=== PATIENT | male | born 1945 | race Caucasian/White ===

== ENCOUNTER 2021-01-29 09:02 | Emergency (ER) | payer MEDICARE, SELFPAY ==
--- NOTE | 2021-01-29 09:08 | ED.SKABFB ---
HPI - Skin/Abscess/Foreign Bdy General Chief complaint: Wound/Laceration Stated complaint: Boil on Back Time Seen by Provider: 01/29/21 09:15 Source: patient and RN notes reviewed Mode of arrival: ambulatory Limitations: no limitations History of Present Illness HPI narrative: 75-year-old male presents to the [facility] with a boil, abscess to the right scapular area. Patient denies pain. There is redness and inflammation. Fluctuant center. Patient states noticed it last night. No fevers, chest pain, abdominal pain. Related Data Home Medications Medication Instructions Recorded Confirmed amlodipine 5 mg PO DAILY 01/29/21 01/29/21 atorvastatin 20 mg PO DAILY 01/29/21 01/29/21 doxazosin 8 mg PO DAILY 01/29/21 01/29/21 lisinopril-hydrochlorothiazide 1 tablet PO DAILY 01/29/21 01/29/21 Allergies Allergy/AdvReac Type Severity Reaction Status Date / Time cephalexin Allergy Unknown Hives Unverified 01/29/21 09:06 Review of Systems Review of Systems: All systems reviewed & are unremarkable except as noted in HPI and below Constitutional: Constitutional: Reports no additional constitutional complaints, Denies chills and Denies fever(s) Eyes: Eyes: Reports no additional eye complaints ENT: Reports system reviewed and no additional complaints, except as documented Cardiovascular: Cardiovascular: Reports no additional cardiovascular complaints Respiratory: Respiratory: Reports no additional respiratory complaints Musculoskeletal: Musculoskeletal: Reports no additional musculoskeletal complaints Integumentary/Breasts: Skin/Breast: Reports as per HPI and Reports erythema (2 cm areax 2 cm with fluctuant center) Neurologic: Reports system reviewed and no additional complaints, except as documented Psychiatric: Psychiatric: Reports no additional psychiatric complaints Allergic/Immunologic: Allergic/Immunologic: Reports no additional allergic/immunologic complaints [facility] Past Medical History Medical History (Updated 01/29/21 @ 09:31 by Ofelia Gerardo) High cholesterol Hypertension Surgical History Surgical History (Updated 01/29/21 @ 09:22 by Ofelia Gerardo) History of prostate surgery Hx of inguinal hernia surgery Social History Social History (Updated 01/29/21 @ 09:22 by Ofelia Gerardo) Living arrangements: with family Gender identity (if verbalized by the patient): Male Comments At the time of my signature, I reviewed and agree with the nursing past medical, surgical, social, and family history. There is no relevant family history pertinent to the patient complaint. Exam Const: General: no acute distress Orientation/consciousness: patient oriented x3 HENMT: Head: normal to inspection Eyes: Pupils: Equal, round and reactive pupils present Neck: Neck: normal visual inspection and no lymphadenopathy Chest: Chest palpation & inspection: normal inspection of the chest Resp: Effort & Inspection: normal respiratory effort Auscultation: clear to auscultation bilaterally Cardio: Rate: regular rate Rhythm: regular rhythm Back/Spine/Pelvis: Back: no CVA tenderness Skin: Wounds: wounds noted Other: Right scapular area, 2 cm redness with small fluctuant center. Neuro: General: patient oriented x3, moves all extremities, no meningeal signs and no focal motor deficits Speech: normal speech Gait exam (Neuro): Normal gait present Extrem: General: normal to inspection Psych: Appearance: grossly normal and well kempt Mental Status: mental status grossly normal Affect: normal affect Attitude: cooperative Thought content: Yes Normal thought content present Course Course Emergency Course: Discharge instructions reviewed with patient, as well as provided in writing per nursing staff. The instructions also include specific and strict return/GO TO THE ER as well as f/u information. All questions have been answered, and the patient deny any further questions with discharge and discharge saadia
[2021-01-29 09:15] VITALS: BP 159/73; PULSE 112; RESP 18; TEMP 35.9; O2SAT 96
== END 2021-01-29 09:40 | disposition home or self-care (01) ==
PROVIDERS: Emergency Provider Nurse Practitioner; PCP Family Medicine
DX: L02.413 Cutaneous abscess of right upper limb (principal); I10 Essential (primary) hypertension
CPT/HCPCS: 10060; 87070; 87075; 87205; 99213; G0463

== ENCOUNTER 2022-05-03 10:03 | Emergency (ER) | payer MEDICARE, SELFPAY ==
--- NOTE | 2022-05-03 10:05 | ED.URI ---
HPI - URI/Sore Throat General Chief Complaint: Upper Respiratory Infection Stated Complaint: cold/flu like sx Time Seen by Provider: 05/03/22 10:04 Source: patient Mode of arrival: ambulatory Limitations: no limitations History of Present Illness HPI Narrative: Mr. Rodriguez is a 77-year-old male patient presenting to the clinic today with complaints of flu-like symptoms. He reports he has got a cough, chills, body aches, and sinus congestion since yesterday. He denies any shortness of breath, chest pain, or headache MD elicited complaint: cough, nasal congestion and other ( chills, body ache) Related Data Home Medications Medication Instructions Recorded Confirmed amlodipine 5 mg tablet 5 mg PO DAILY 01/29/21 05/03/22 atorvastatin 20 mg tablet 20 mg PO DAILY 01/29/21 05/03/22 doxazosin 8 mg tablet 8 mg PO DAILY 01/29/21 05/03/22 lisinopril 20 1 tablet PO DAILY 01/29/21 05/03/22 mg-hydrochlorothiazide 25 mg tablet Allergies Allergy/AdvReac Type Severity Reaction Status Date / Time cephalexin Allergy Unknown Hives Verified 05/03/22 10:06 Review of Systems Review of Systems: Pertinent positives per HPI. Patient denies any fever, rash, headache, visual changes, dizziness, shortness of breath, chest pain, palpitations, nausea, vomiting, diarrhea, constipation, abdominal pain, or any urinary issues. [facility] Past Medical History Medical History (Updated 05/03/22 @ 10:29 by Julian Hogan APRN) High cholesterol Hypertension Surgical History Surgical History (Updated 01/29/21 @ 09:22 by Ofelia Gerardo APRN) History of prostate surgery Hx of inguinal hernia surgery Social History Social History (Updated 01/29/21 @ 09:22 by Ofelia Gerardo APRN) Gender identity (if verbalized by the patient): Male Comments At the time of my signature, I reviewed and agree with the nursing past medical, surgical, social, and family history. There is no relevant family history pertinent to the patient complaint. Exam Narrative: General: Well-developed, well nourished, in no apparent distress Head: Normocephalic, atraumatic Eyes: Pupils equally round and reactive to light bilaterally, EOM intact, sclera and conjunctive clear, no discharge, lids normal Ears: TMs intact and clear, ear canals clear, no drainage, grossly hearing normal. Nose: Nares patent, clear nasal discharge, no inflammation, no sinus tenderness. Mouth: Oral pharynx without lesions or masses, good dentition, MMM. postnasal drip Neck: Supple, trachea midline, no enlargement of anterior or posterior cervical nodes, no thyroid masses or goiter palpable. Cardio: Regular rate and rhythm, s1 and s2 normal, no murmur appreciated. Resp: Clear to auscultation bilaterally, no rhonchi, rales, wheezing or rubs Course Course Emergency Course: Portions of this record may have been created with voice recognition software. Level of Care: Express Care Visit Vital Signs Vital signs: Vital Signs Temperature 36.5 C 05/03/22 10:11 Pulse Rate 101 H 05/03/22 10:11 Respiratory Rate 16 05/03/22 10:11 Blood Pressure 136/66 05/03/22 10:11 Pulse Oximetry 96 05/03/22 10:11 Oxygen Delivery Room Air 05/03/22 10:11 Temperature 36.5 C 05/03/22 10:11 Pulse Rate 101 H 05/03/22 10:11 Respiratory Rate 16 05/03/22 10:11 Blood Pressure 136/66 05/03/22 10:11 Pulse Oximetry 96 05/03/22 10:11 Oxygen Delivery Room Air 05/03/22 10:11 Vital signs reviewed MDM - URI/Sore Throat MDM Narrative Medical decision making narrative: At the time of visit patient is resting comfortably on the exam table. Influenza and COVID testing was completed in the clinic today. Influenza was negative however COVID testing is positive in the clinic. Prescription for molnupiviria was sent to the pharmacy. Supportive measures were discussed with the patient he voiced understanding discharge instructions and agrees to treatment plan. Differential Diagnos
[2022-05-03 10:11] VITALS: BP 136/66; PULSE 101; RESP 16; TEMP 36.5; O2SAT 96
== END 2022-05-03 10:32 | disposition home or self-care (01) ==
PROVIDERS: Emergency Provider Nurse Practitioner Family; PCP Family Medicine
DX: U07.1 COVID-19 (principal); I10 Essential (primary) hypertension
CPT/HCPCS: 87426; 87804; 99213; C9803; G0463

== ENCOUNTER 2024-04-24 04:09 | Inpatient (IN) | payer MEDICARE, SELFPAY ==
[2024-04-24] VITALS (8 sets, daily range): BP systolic 129–145; BP diastolic 62–80; PULSE 76–99; RESP 14–20; TEMP 36.8–37.4; O2SAT 90–98; BMI 28.3
--- NOTE | ~2024-04-24 | CT_ITS ---
EXAMINATION: CT abdomen pelvis w con DATE: 04/24/2024 06:36 INDICATION: Epigastric abdominal pain. Elevated serum lipase. TECHNIQUE: Computed tomography (CT) of the abdomen and pelvis was performed with 100 CC Omnipaque 350 intravenous contrast. Automated exposure control and iterative reconstruction technique were employe d. Exam dose: 868.96 mGy-cm total exam DLP. COMPARISON: None. FINDINGS: Scattered bilateral calcified pleural plaques consistent with prior asbestos exposure. Minimal atelectasis at the lung bases. Heart size is within normal range. There is calcification of the left main and particularly left ante rior descending coronary arteries. No pericardial or pleural effusion. Small sliding hiatal hernia. Diffuse hepatic steatosis. No hepatic space-occupying mass lesion. The gallbladder is present. No gal lbladder wall thickening is evident. There is diffuse peripancreatic mild fat stranding consistent with uncomplicated acute interstitial p ancreatitis. No pancreatic mass lesion, ductal dilatation or calcification. No bile duct dilatation. Normal splenic size. Normal morphology of the adrenal glands. No renal mass lesion or urinary tract calculus or hydroureteronephrosis is detected There is atherosclerotic calcification but normal caliber of the abdominal aorta and iliac and femora l arteries. No intraperitoneal or retroperitoneal or pelvic mass lesion or adenopathy or ascites is detected. Normal appendix. There are numerous diverticula of the sigmoid and descending colon; no CT evidence of diverticulitis. No bowel obstruction, bowel wall thickening, pneumatosis or intraperitoneal free air is detected. Status post prostatectomy. The urinary bladder is unremarkable. Bilateral small fat-containing inguinal hernias. Diffuse idiopathic skeletal hyperostosis of the included lower thoracic spine. There is prominent degenerative change at the apophyseal joints at the lumbar and lumbosacral area wi th associated minimal grade 1 anterolisthesis at L4-5. No suspicious osteolytic or osteoblastic lesions. IMPRESSION: Acute interstitial pancreatitis Small sliding hiatal hernia Normal appendix Diverticulosis of left colon; no CT evidence of diverticulitis Diffuse hepatic steatosis Status post prostatectomy Scattered bilateral calcified pleural plaques consistent with prior asbestos exposure Reviewed, dictated and finalized at [facility]. Reviewed, dictated and finalized at [facility]. ON CUTTER IMPRESSION: Acute interstitial pancreatitis Small sliding hiatal hernia Normal appendix Diverticulosis of left colon; no CT evidence of diverticulitis Diffuse hepatic steatosis Status post prostatectomy Scattered bilateral calcified pleural plaques consistent with prior asbestos ex posure
--- NOTE | ~2024-04-24 | XR_ITS ---
XR chest 1V portable DATE: 04/24/2024 04:44 INDICATION: Chest pain TECHNIQUE: Portable upright AP chest 04/24/2024 at 0444 hours COMPARISON: None FINDINGS: Heart size is normal. Aortic calcification and mild tortuosity. No hilar or mediastinal enl argement. No pulmonary consolidation, pleural effusion, pulmonary vascular congestion or pneumothorax. Degenerative spurring and mild dextroscoliosis of the thoracic spine. IMPRESSION: No active cardiopulmonary disease Reviewed, dictated and finalized at location [facility]. R D INTERNSHIP
--- NOTE | ~2024-04-24 | US_ITS ---
US right upper quadrant DATE: 04/24/2024 08:20 INDICATION: Elevated liver enzymes. Pancreatitis. TECHNIQUE: Real-time imaging of the liver, pancreas, gallbladder COMPARISON: 04/24/2024 CT abdomen pelvis FINDINGS: Increased echogenicity of the hepatic parenchyma suggesting hepatic steatosis. Normal hepat opedal portal venous flow direction. No gallstones or gallbladder wall thickening are detected. Negative sonographic Cantu sign; however, the patient is on pain medication, which limits the sensitivity of this examination. No pancreatic mass lesion is evident. No pancreatic duct dilatation. The common bile duct measures 7.4 mm, which is borderline in this 79-year-old patient. IMPRESSION: Hepatic steatosis No gallstones are demonstrated Borderline common bile duct diameter of 7.4 mm Reviewed, dictated and finalized at [facility]. Reviewed, dictated and finalized at [facility]. 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
--- NOTE | ~2024-04-24 | MR_ITS ---
EXAMINATION: MR MRCP wo con/w 3D wo ind pp DATE: 04/24/2024 15:54 INDICATION: Bile duct dilatation. Acute pancreatitis. TECHNIQUE: Magnetic resonance imaging (MRI) of the abdomen was performed without intravenous contrast . Sequences included coronal T2-weighted FS FSE, coronal T2-weighted FSE, axial T1-weighted LAVA, cor onal FS FIESTA, axial dual-echo T1-weighted SPGR, coronal lava-FLEX, sagittal T2-weighted FSE, axial T2-weighted FSE, and axial DWI. Thick-slab T2-weighted FSE images were obtained for magnetic resonanc e cholangiopancreatography (MRCP). Maximum intensity projection 3-D reconstructions of the volumetric data were created by the technologist. COMPARISON: CT abdomen and pelvis 04/24/2024 FINDINGS: ABDOMEN MRI: There is diffuse hepatic steatosis. The gallbladder is normal in size. The spleen is nor mal. There is fat stranding around the pancreas, consistent with acute interstitial pancreatitis. The adrenal glands and left kidney are normal. There is an 11 mm cyst in right kidney. There are no dila josh loops of bowel. ABDOMEN MRCP: The common duct measures 8 mm in diameter. No choledocholithiasis. IMPRESSION: 1. Acute interstitial pancreatitis. 2. No choledocholithiasis. 3. Diffuse hepatic steatosis. Reviewed, dictated and finalized at location [facility]. 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
--- NOTE | 2024-04-24 04:17 | ECG_ITS ---
Test Date: 2024-04-24 04:19:37 Measurements Intervals [place] Rate: 82 P: -47 MD: 167 QRS: 42 QRSD: 98 T: 59 QT: 374 QTc: 438 Interpretive Statements SINUS RHYTHM BORDERLINE AV CONDUCTION DELAY ANTERIOR INFARCT, AGE INDETERMINATE BORDERLINE ST-T WAVE ABNORMALITY- INF/LAT LEADS BASELINE ARTIFACT- I, II, III, AVR, AVL, AVF, V1-V6 ABNORMAL ECG No previous ECG available for comparison Electronically Signed On 04-24-2024 06:34:39 [employer]ATE INSPECTOR by Brody Montgomery D.O.
[2024-04-24] MEDS: ASPIRIN 81 MG CHEWABLE TABLET 324 MG PO (04:35)
[2024-04-24 04:42] LABS: Basophils Percent Auto 0.4 % (0.2-1.2); Eosinophils Absolute Auto 0.2 K/mm3 (0-0.3); Eosinophils Percent Auto 2.4 % (0-4.4); Hematocrit 39.7 % (42.0-52.0); Hemoglobin 13.9 g/dL (14.0-18.0); Immature Granulocyte Absolute 0.02 K/mm3 (0.00-0.031); Immature Granulocyte Percent A 0.2 % (0-0.5); Lymphocytes Absolute Auto 1.85 K/mm3 (0.9-3.2); Lymphocytes Percent Auto 22.5 % (18.3-44.2); Mean Corpuscular Hemoglobin 31.2 pg (26-34); Mean Platelet Volume 10.6 fl (7.4-10.4); Monocytes Absolute Auto 0.8 K/mm3 (0.1-0.6); Monocytes Percent Auto 9.5 % (2.6-8.5); Neutrophils Absolute Auto 5.4 K/mm3 (1.3-6.7); Platelet Count Result 252 k/mm3 (150-375); Red Blood Count 4.46 M/mm3 (4.6-6.20); Red Cell Distribution Width 12.4 % (11.5-14.5); White Blood Count 8.2 K/mm3 (4.5-10.0)
--- NOTE | 2024-04-24 04:46 | ED_ITS ---
HPI - General Adult General Chief complaint: Chest Pain <García Christiansen MD - Last Filed: 04/24/24 06:15> Stated complaint: chest pain since yesterday <García Christiansen MD - Last Filed: 04/24/24 06:15> Time Seen by Provider: 04/24/24 04:28 <García Christiansen MD - Last Filed: 04/24/24 06:15> History of Present Illness HPI narrative: Patient is a 79-year-old gentleman presents emergency department with chief complaint of chest pain. Patient reports about 1 hour prior to arrival woke up with having home midportion of his chest. Patient reports no radiation does report that it got a little sweaty/ diaphoretic with the episode happened patient reports the pain has improved and is significantly improved and was very mild at this. <García Christiansen MD - Last Filed: 04/24/24 06:15> Related Data Home medications: Home Medications Medication Instructions Recorded Confirmed amlodipine 5 mg tablet 5 mg PO DAILY 01/29/21 05/03/22 atorvastatin 20 mg tablet 20 mg PO DAILY 01/29/21 05/03/22 doxazosin 8 mg tablet 8 mg PO DAILY 01/29/21 05/03/22 lisinopril 20 1 tablet PO DAILY 01/29/21 05/03/22 mg-hydrochlorothiazide 25 mg tablet <García Christiansen MD - Last Filed: 04/24/24 06:15> Allergies/adverse reactions: Allergies Allergy/AdvReac Type Severity Reaction Status Date / Time cephalexin Allergy Unknown Hives Verified 05/03/22 10:06 <García Christiansen MD - Last Filed: 04/24/24 06:15> Review of Systems Review of Systems: A 10 system review of systems was completed on the patient and is negative except for what is stated in the HPI. Nursing and ancillary documentation was reviewed. <García Christiansen MD - Last Filed: 04/24/24 06:15> [facility] Past Medical History Medical History: Medical History High cholesterol Hypertension <García Christiansen MD - Last Filed: 04/24/24 06:15> Surgical History Surgical History: Surgical History History of prostate surgery Hx of inguinal hernia surgery <García Christiansen MD - Last Filed: 04/24/24 06:15> Social History Social History: Social History Living arrangements: with family Gender identity (if verbalized by the patient): Male <García Christiansen MD - Last Filed: 04/24/24 06:15> Exam Narrative: GENERAL: Well-appearing, well-nourished, and in no acute distress. HEAD: Normocephalic, atraumatic. EYES: PERRLA and EOMI. ENT: Nares clear, no rhinorrhea or epistaxis. Mucous membranes moist. NECK: Supple. CHEST: Clear to auscultation. No respiratory distress. HEART: Regular rate and rhythm. No murmur heard. Normal peripheral pulses. ABDOMEN: Soft, nontender, nondistended, normal active bowel sounds. EXTREMITIES: Normal range of motion. No edema. SKIN: Warm, dry, no rash. NEURO: No focal deficits. Alert and oriented x3. PSYCH: Normal mood and affect. <García Christiansen MD - Last Filed: 04/24/24 06:15> Course Course Emergency Course: Zych 1040: patient signed out to me pending CT abdomen pelvis and right upper quadrant ultrasound. Lipase at 19,000. no evidence of gallstones on the CT or ultrasound. Patient admits to drinking with his sons over and drink far more than he typically does. Alcohol is the likely etiology. At this time the patient will be admitted to the hospital for further management of his pancreatitis. <Wisam Estrella MD - Last Filed: 04/24/24 11:15> Vital Signs Vital signs: Vital Signs Pulse Rate 98 04/24/24 04:13 Respiratory Rate 20 04/24/24 04:13 Pulse Oximetry 98 04/24/24 04:13 Oxygen Delivery Room Air 04/24/24 04:13 Temperature 98.2 F 04/24/24 04:51 Pulse Rate 95 04/24/24 09:47 Respiratory Rate 14 04/24/24 09:47 Blood Pressure 137/75 04/24/24 09:47 Pulse Oximetry 94 04/24/24 09:47 Oxygen Delivery Room Air 04/24/24 04:13 <García Christiansen MD - Last Filed: 04/24/24 06:15> Vital Signs Pulse Rate 98 04/24/24 04:13 Respiratory Rate 20 04/24/24 04:13 Pulse Oximetry 98 04/24/24 04:13 Oxygen Delivery Room Air 04/24/24 04:13 Temperature 98.2 F 04/24/24 04:51 Pulse Rate 95 04/24/24 09:47 Respiratory Rate 14 04/24/24 09:47 Blood Pressure 137/75 04/24/24 09:47 Pulse Oximetry 94 04/24/24 09:47 Oxygen Delivery Room Air 04/24/24 04:13 <Wisam Estrella MD - Last Filed: 04/24/24 11:15> Medical Decision Making MDM Narrative Medical decision making narrative: Differential diagnosis includes ACS, atypical chest pain, pancreatitis, EKG showed no acute ischemic changes laboratory studies were obtained on the patient showed a CBC with white count of 8.2 electrolytes were within normal limits bilirubin is 1.8 AST and ALT were elevated at 185 and [id number] scan of the abdomen pelvis was ordered patient is feeling much better at this time <García Christiansen MD - Last Filed: 04/24/24 06:15> Vital Signs Vital Signs: Vital Signs Pulse Rate 98 04/24/24 04:13 Respiratory Rate 20 04/24/24 04:13 Pulse Oximetry 98 04/24/24 04:13 Oxygen Delivery Room Air 04/24/24 04:13 Temperature 98.2 F 04/24/24 04:51 Pulse Rate 95 04/24/24 09:47 Respiratory Rate 14 04/24/24 09:47 Blood Pressure 137/75 04/24/24 09:47 Pulse Oximetry 94 04/24/24 09:47 Oxygen Delivery Room Air 04/24/24 04:13 <García Christiansen MD - Last Filed: 04/24/24 06:15> Vital Signs Pulse Rate 98 04/24/24 04:13 Respiratory Rate 20 04/24/24 04:13 Pulse Oximetry 98 04/24/24 04:13 Oxygen Delivery Room Air 04/24/24 04:13 Temperature 98.2 F 04/24/24 04:51 Pulse Rate 95 04/24/24 09:47 Respiratory Rate 14 04/24/24 09:47 Blood Pressure 137/75 04/24/24 09:47 Pulse Oximetry 94 04/24/24 09:47 Oxygen Delivery Room Air 04/24/24 04:13 <Wisam Estrella MD - Last Filed: 04/24/24 11:15> Lab Data Result diagrams: 04/24/24 04:35 04/24/24 04:35 <García Christiansen MD - Last Filed: 04/24/24 06:15> Labs: Lab Results 04/24/24 04/24/24 04/24/24 Range/Units 04:35 04:36 09:54 WBC 8.2 (4.5-10.0) K/mm3 RBC 4.46 L (4.6-6.20) M/mm3 Hgb 13.9 L (14.0-18.0) g/dL Hct 39.7 L (42.0-52.0) % MCV 89.0 (80-100) fl MCH 31.2 (26-34) pg MCHC 35.0 (32-36) g/dl RDW 12.4 (11.5-14.5) % Plt Count 252 (150-375) k/mm3 MPV 10.6 H (7.4-10.4) fl Immature Gran % (Auto) 0.2 (0-0.5) % Neut % (Auto) 65.0 (45.5-73.1) % Lymph % (Auto) 22.5 (18.3-44.2) % [place] % (Auto) 9.5 H (2.6-8.5) % Eos % (Auto) 2.4 (0-4.4) % Baso % (Auto) 0.4 (0.2-1.2) % Lymph # (Auto) 1.85 (0.9-3.2) K/mm3 [place] # (Auto) 0.8 H (0.1-0.6) K/mm3 Eos # (Auto) 0.2 (0-0.3) K/mm3 Baso # (Auto) 0.0 (0.0-0.1) K/mm3 Abs Immat Gran (auto) 0.02 (0.00-0.031) K/mm3 Absolute Neuts (auto) 5.4 (1.3-6.7) K/mm3 Absolute Nucleated RBC 0.000 (0.0-0.012) K/mm3 Nucleated RBC % 0.0 (0.0-0.2) % PT 13.9 (11.1-14.7) Seconds INR 1.0 APTT 27.4 (22.3-36.8) Seconds Sodium 136 L (137-145) mmol/L Potassium 3.4 (3.4-5.0) mmol/L Chloride 104 (98-107) mmol/L Carbon Dioxide 27 (22-30) mmol/L Anion Gap 5 (4-12) mmol/L BUN 16 (9-20) mg/dL Creatinine 1.00 (0.7-1.3) mg/dL Estim Creat Clear Calc 59 ml/min Estimated GFR > 60 (59 - ) Glucose 146 H (65-110) mg/dL Calcium 9.0 (8.4-10.2) mg/dL Total Bilirubin 1.8 H (0.2-1.3) mg/dL AST 185 H (17-59) U/L ALT 115 H (6-50) U/L Alkaline Phosphatase 102 (38-126) U/L Troponin I < 0.012 0.012 (0.000-0.034) ng/mL Total Protein 8.0 (6.3-8.2) g/dL Albumin 4.3 (3.5-5.1) g/dL Lipase 78110 H (23-300) U/L <García Christiansen MD - Last Filed: 04/24/24 06:15> Lab Results 04/24/24 04/24/24 04/24/24 Range/Units 04:35 04:36 09:54 WBC 8.2 (4.5-10.0) K/mm3 RBC 4.46 L (4.6-6.20) M/mm3 Hgb 13.9 L (14.0-18.0) g/dL Hct 39.7 L (42.0-52.0) % MCV 89.0 (80-100) fl MCH 31.2 (26-34) pg MCHC 35.0 (32-36) g/dl RDW 12.4 (11.5-14.5) % Plt Count 252 (150-375) k/mm3 MPV 10.6 H (7.4-10.4) fl Immature Gran % (Auto) 0.2 (0-0.5) % Neut % (Auto) 65.0 (45.5-73.1) % Lymph % (Auto) 22.5 (18.3-44.2) % [place] % (Auto) 9.5 H (2.6-8.5) % Eos % (Auto) 2.4 (0-4.4) % Baso % (Auto) 0.4 (0.2-1.2) % Lymph # (Auto) 1.85 (0.9-3.2) K/mm3 [place] # (Auto) 0.8 H (0.1-0.6) K/mm3 Eos # (Auto) 0.2 (0-0.3) K/mm3 Baso # (Auto) 0.0 (0.0-0.1) K/mm3 Abs Immat Gran (auto) 0.02 (0.00-0.031) K/mm3 Absolute Neuts (auto) 5.4 (1.3-6.7) K/mm3 Absolute Nucleated RBC 0.000 (0.0-0.012) K/mm3 Nucleated RBC % 0.0 (0.0-0.2) % PT 13.9 (11.1-14.7) Seconds INR 1.0 APTT 27.4 (22.3-36.8) Seconds Sodium 136 L (137-145) mmol/L Potassium 3.4 (3.4-5.0) mmol/L Chloride 104 (98-107) mmol/L Carbon Dioxide 27 (22-30) mmol/L Anion Gap 5 (4-12) mmol/L BUN 16 (9-20) mg/dL Creatinine 1.00 (0.7-1.3) mg/dL Estim Creat Clear Calc 59 ml/min Estimated GFR > 60 (59 - ) Glucose 146 H (65-110) mg/dL Calcium 9.0 (8.4-10.2) mg/dL Total Bilirubin 1.8 H (0.2-1.3) mg/dL AST 185 H (17-59) U/L ALT 115 H (6-50) U/L Alkaline Phosphatase 102 (38-126) U/L Troponin I < 0.012 0.012 (0.000-0.034) ng/mL Total Protein 8.0 (6.3-8.2) g/dL Albumin 4.3 (3.5-5.1) g/dL Lipase 71667 H (23-300) U/L <Wisam Estrella MD - Last Filed: 04/24/24 11:15> Critical Care Time Critical Care Time Critical Care Time: Yes <Wisam Estrella MD - Last Filed: 04/24/24 11:15> Total Critical Care Time: 35 <Wisam Estrella MD - Last Filed: 04/24/24 11:15> Discharge Plan Discharge Clinical Impression: Abdominal pain, epigastric, Pancreatitis, acute <García Christiansen MD - Last Filed: 04/24/24 06:15> Patient Disposition: Still a Patient <García Christiansen MD - Last Filed: 04/24/24 06:15> Condition: Stable <García Christiansen MD - Last Filed: 04/24/24 06:15> Prescriptions: No Action atorvastatin 20 mg tablet 20 mg PO DAILY amlodipine 5 mg tablet 5 mg PO DAILY doxazosin 8 mg tablet 8 mg PO DAILY lisinopril-hydrochlorothiazide 20-25 mg tablet 1 tablet PO DAILY Lagevrio (EUA) 200 mg capsule 800 mg PO Q12H 5 Days Qty: 40 0RF <García Christiansen MD - Last Filed: 04/24/24 06:15> Follow-up/Referrals: Tavo,Jameel Cline MD [Primary Care Provider] - <García Christiansen MD - Last Filed: 04/24/24 06:15>
[2024-04-24 04:53] LABS: Prothrombin Time 13.9 Seconds (11.1-14.7)
[2024-04-24 04:54] LABS: Partial Thromboplastin Time 27.4 Seconds (22.3-36.8)
[2024-04-24 05:06] LABS: Troponin I < 0.012 ng/mL (0.000-0.034)
[2024-04-24 05:22] LABS: Alanine Aminotransferase 115 U/L (6-50); Albumin Level 4.3 g/dL (3.5-5.1); Alkaline Phosphatase 102 U/L (38-126); Anion Gap 5 mmol/L (4-12); Aspartate Amino Transferase 185 U/L (17-59); Bilirubin,Total 1.8 mg/dL (0.2-1.3); Blood Urea Nitrogen 16 mg/dL (9-20); Carbon Dioxide 27 mmol/L (22-30); Chloride 104 mmol/L (98-107); Estimated CRCL calculation 59 ml/min; Estimated Glomerular Filt Rate > 60; Glucose 146 mg/dL (65-110); Potassium 3.4 mmol/L (3.4-5.0); Sodium 136 mmol/L (137-145)
[2024-04-24 05:54] LABS: Lipase 19835 U/L (23-300)
[2024-04-24 10:34] LABS: Troponin I 0.012 ng/mL (0.000-0.034)
[2024-04-24] MEDS: SODIUM CHLORIDE 0.9% IV 2,000 ML 999 ML IV CONT (11:23)
[2024-04-24] MEDS: ONDANSETRON INJ 4 MG/2 ML VIAL IV PUSH (11:24)
[2024-04-24] MEDS: HYDROmorphone HCL INJ (*CRX) 1 MG/ML SYR 0.5 MG IV PUSH ×3 (11:24→20:58)
--- NOTE | 2024-04-24 12:09 | ADMGEN ---
This patient, Robert Rodriguez, was admitted to Medical Room 344-01. Patient/family oriented to hospital policies and general routines including ID bracelet, bed and alarms, visiting hours, pain management, procedures, bathroom and other care routines, personal items, smoking policy, room service/diet, and visiting hours. Information on how to activate the Rapid Response Team has been discussed. Patient/Family are encouraged to report perceived risks to care and to ask questions if they do not understand what they are told or what they should do.
[2024-04-24 12:44] LABS: Troponin I < 0.012 ng/mL (0.000-0.034)
--- NOTE | 2024-04-24 12:47 | P.HP_ITS ---
H&P: HPI History of Present Illness Date/Time: 04/24/24 12:47 Chief Complaint: abd pain Narrative: 79-year-old male past medical history of hypertension, hyperlipidemia presented to the ER on account of abdominal pain. Patient reported he was in his usual state of health until about yesterday when he started having abdominal pain and upper abdominal region, described as a dull 7/10 in intensity nonradiating. Denies any vomiting no diarrhea no shortness of breath no leg swelling no focal weakness. Noted at pain kept him awake awake most of the night, prompting presentation to the ER for proper evaluation and care. ER evaluation vital signs were stable within normal limits. Labs lipase 19,008 on 22/10, AST 185, ALT 1.5, bilirubin 8. Blood sugar 146. Troponin negative EKG normal sinus rhythm no acute ST-T changes. CT abdomen and pelvis showed acute interstitial pancreatitis. Chest x-ray unremarkable. Ultrasound showed no gallstones demonstrated over borderline common bile duct diameter Review of Systems Review of Systems: All other systems were reviewed and negative except as noted in the history above. [facility] Past Medical History Medical History High cholesterol Hypertension Surgical History Surgical History History of prostate surgery Hx of inguinal hernia surgery Family History Family History (Updated 04/24/24 @ 12:28 by Berat Steven RN) Father Coronary artery disease involving coronary bypass graft , Onset Age: 87 Hypertension Mother Colon cancer , Onset Age: 98 Social History Social History Smoking packs per day: 2 Smoking cigarettes per day: 40.0 Years smoked: 18 Smoking pack-years: 36.00 Smoking status: Former smoker Tobacco type: cigarettes Alcohol intake: current Drinks per week: 6 Substance use: never Do You Feel Safe in your Home?: Yes Lack of Transportation: No Lack of Food: Never True Current Housing: I Have Housing Concerned About Future Housing: No Difficulty Paying Gas/Electric Bills: No Difficulty Paying for Meds: No Currently Unemployed: No Education: Trade/Vocational Certificate Difficulty w/ Childcare or Family Care: No Living arrangements: with family Gender identity (if verbalized by the patient): Male Spiritual care concerns: No Meds Home Medications and Allergies Home Medications Medication Instructions Recorded Confirmed Type amlodipine 5 mg tablet 5 mg PO DAILY 01/29/21 04/24/24 History atorvastatin 20 mg tablet 20 mg PO HS 01/29/21 04/24/24 History doxazosin 8 mg tablet 8 mg PO HS 01/29/21 04/24/24 History lisinopril 20 1 tablet PO DAILY 01/29/21 04/24/24 History mg-hydrochlorothiazide 25 mg tablet acetaminophen 500 mg tablet 1,000 mg PO Q8H PRN mild pain or 04/24/24 04/24/24 History (Tylenol Extra Strength) fever cetirizine 10 mg tablet 10 mg PO HS 04/24/24 04/24/24 History ibuprofen 200 mg tablet 400 mg PO Q6H PRN muscle/joint pain 04/24/24 04/24/24 History metformin 500 mg tablet,extended 500 mg PO BID 04/24/24 04/24/24 History release 24 hr Allergies Allergy/AdvReac Type Severity Reaction Status Date / Time cephalexin Allergy Unknown Hives Verified 05/03/22 10:06 Vital Signs Vital Signs - 24 hr 04/24/24 04:13 04/24/24 04:51 04/24/24 05:13 Temperature 98.2 F Pulse Rate 98 77 76 Respiratory Rate 20 18 18 Blood Pressure 145/70 H 134/72 Pulse Oximetry 98 98 98 Oxygen Delivery Room Air 04/24/24 07:20 04/24/24 09:47 04/24/24 11:32 Temperature Pulse Rate 84 95 99 Respiratory Rate 17 14 20 Blood Pressure 143/66 H 137/75 137/80 Pulse Oximetry 96 94 94 Oxygen Delivery Exam Narrative: General: alert and comfortable Eyes: EOMI, PERRLA ENNT External ears normal, Neck is supple, no masses, Respiratory systems: Clear to auscultation Cardiovascular S1, S2, normal rhythm, no murmur, rub, or gallop; no thrill or palpable murmurs on palpation. Gastrointestinal: soft, epigastric tenderness, and non-distended abdomen with no masses; BS present Skin: no rash, lesions, ulcerations, subcutaneous nodules or induration Musculoskeletal: no abnormality and no tenderness, normal ROM Neurologic: Alert and oriented x3, non focal Mental Status Exam: normal affect H&P: Results Labs Labs: Short CBC 04/24/24 Range/Units 04:35 WBC 8.2 (4.5-10.0) K/mm3 Hgb 13.9 L (14.0-18.0) g/dL Hct 39.7 L (42.0-52.0) % Plt Count 252 (150-375) k/mm3 BMP 04/24/24 04:35 Sodium 136 L Potassium 3.4 Chloride 104 Carbon Dioxide 27 BUN 16 Creatinine 1.00 Glucose 146 H Calcium 9.0 Cardiac Enzymes 04/24/24 04/24/24 04/24/24 Range/Units 04:35 09:54 12:14 Troponin I < 0.012 0.012 < 0.012 (0.000-0.034) ng/mL Liver Function 04/24/24 Range/Units 04:35 Total Bilirubin 1.8 H (0.2-1.3) mg/dL AST 185 H (17-59) U/L ALT 115 H (6-50) U/L Alkaline Phosphatase 102 (38-126) U/L Albumin 4.3 (3.5-5.1) g/dL Assessment and Plan Assessment and plan (1) Pancreatitis, acute: Code(s): K85.90 - Acute pancreatitis without necrosis or infection, unspecified Status: Acute (2) Abdominal pain, epigastric: Code(s): R10.13 - Epigastric pain Status: Acute Plan Acute pancreatitis with elevated liver enzymes Patient presented with abdominal pain CT abdomen and pelvis showed acute interstitial pancreatitis Lipase 19,835, AST 185, bilirubin 1.8, ALT 115. Continue NPO except meds and ice chips IV fluid, GI consulted for possible CBD obstruction evaluation. One. Hypertension Continue to Zosyn, who are the home medications and titrate with clinical course. Hyperlipidemia Hold home medications and titrate with clinical course. DM2 SSI with accucheks DVT prophylaxis Sq Lovenox Full code Surrogate decision maker, Georgia Mosleycirilo
[2024-04-24] MEDS: LACTATED RINGERS 1,000 ML 125 ML IV CONT (13:19)
--- NOTE | 2024-04-24 13:26 | P.CONGI_ITS ---
Assessment and Plan Assessment and plan (1) Abdominal pain, epigastric: Code(s): R10.13 - Epigastric pain Status: Acute (2) Pancreatitis, acute: Qualifiers: Pancreatitis type: alcohol induced Code(s): K85.90 - Acute pancreatitis without necrosis or infection, unspecified Status: Acute Plan acute pancreatitis most likely secondary to alcohol use. Continue with conservative management patient is also on low-dose hydrochlorothiazide but it appears to be more alcohol rather than the medication induced will check a lipid panel continue with aggressive IV hydration mildly elevated liver function tests most likely secondary to pancreatitis we will repeat the lab workup in the morning I will order the MRCP without contrast for evaluation of the bile duct will keep the patient NPO we will check a CRP pain and nausea control thanks for the consult GI Consult Note Consult date/time: 04/24/24 13:26 Reason for consult: acute pancreatitis alcohol use mildly dilated bile duct abdominal pain HPI: Robert Rodriguez is a 79 year old male who presented with abdominal pain for last 2 days getting worse denies any nausea vomiting denies any GI bleeding does feel little warm but no fever or chills according to him he had similar episode 25 years ago patient does admit drinking alcohol off and on on use alcohol too patient ultrasound did not show any gallstones CT scan showed pancreatitis no obvious masses were noted on ultrasound this and then the bile duct is mildly dilated. Bilirubin is slightly elevated to 1.8 Review of Systems Review of Systems: negative otherwise [facility] Past Medical History Medical History High cholesterol Hypertension Surgical History Surgical History History of prostate surgery Hx of inguinal hernia surgery Family History Family History Father Coronary artery disease involving coronary bypass graft , Onset Age: 87 Hypertension Mother Colon cancer , Onset Age: 98 Social History Social History Smoking packs per day: 2 Smoking cigarettes per day: 40.0 Years smoked: 18 Smoking pack-years: 36.00 Smoking status: Former smoker Tobacco type: cigarettes Alcohol intake: current Drinks per week: 6 Substance use: never Do You Feel Safe in your Home?: Yes Lack of Transportation: No Lack of Food: Never True Current Housing: I Have Housing Concerned About Future Housing: No Difficulty Paying Gas/Electric Bills: No Difficulty Paying for Meds: No Currently Unemployed: No Education: Trade/Vocational Certificate Difficulty w/ Childcare or Family Care: No Living arrangements: with family Gender identity (if verbalized by the patient): Male Spiritual care concerns: No Meds Home Medications and Allergies Home Medications Medication Instructions Recorded Confirmed Type amlodipine 5 mg tablet 5 mg PO DAILY 01/29/21 04/24/24 History atorvastatin 20 mg tablet 20 mg PO HS 01/29/21 04/24/24 History doxazosin 8 mg tablet 8 mg PO HS 01/29/21 04/24/24 History lisinopril 20 1 tablet PO DAILY 01/29/21 04/24/24 History mg-hydrochlorothiazide 25 mg tablet acetaminophen 500 mg tablet 1,000 mg PO Q8H PRN mild pain or 04/24/24 04/24/24 History (Tylenol Extra Strength) fever cetirizine 10 mg tablet 10 mg PO HS 04/24/24 04/24/24 History ibuprofen 200 mg tablet 400 mg PO Q6H PRN muscle/joint pain 04/24/24 04/24/24 History metformin 500 mg tablet,extended 500 mg PO BID 04/24/24 04/24/24 History release 24 hr Allergies Allergy/AdvReac Type Severity Reaction Status Date / Time cephalexin Allergy Unknown Hives Verified 05/03/22 10:06 Vital Signs Vital Signs - 24 hr 04/24/24 04:13 04/24/24 04:51 04/24/24 05:13 Temperature 98.2 F Pulse Rate 98 77 76 Respiratory Rate 20 18 18 Blood Pressure 145/70 H 134/72 Pulse Oximetry 98 98 98 Oxygen Delivery Room Air 04/24/24 07:20 04/24/24 09:47 04/24/24 11:32 Temperature Pulse Rate 84 95 99 Respiratory Rate 17 14 20 Blood Pressure 143/66 H 137/75 137/80 Pulse Oximetry 96 94 94 Oxygen Delivery Exam Narrative: no acute distress Eyes: Other: pupil equal reactive Neck: Other: supple Chest: Other: clear Resp: Other: air entry equal bilateral no obvious wheezes Cardio: Other: S1-S2 regular rate GI: Other: mildly abdominal distention mild tenderness no rebound no guarding. Bowel so unds diminished Neuro: Other: intact Results Labs 04/24/24 04:35 04/24/24 04:35 Labs: Short CBC 04/24/24 Range/Units 04:35 WBC 8.2 (4.5-10.0) K/mm3 Hgb 13.9 L (14.0-18.0) g/dL Hct 39.7 L (42.0-52.0) % Plt Count 252 (150-375) k/mm3 BMP 04/24/24 04:35 Sodium 136 L Potassium 3.4 Chloride 104 Carbon Dioxide 27 BUN 16 Creatinine 1.00 Glucose 146 H Calcium 9.0 Cardiac Enzymes 04/24/24 04/24/24 04/24/24 Range/Units 04:35 09:54 12:14 Troponin I < 0.012 0.012 < 0.012 (0.000-0.034) ng/mL Liver Function 04/24/24 Range/Units 04:35 Total Bilirubin 1.8 H (0.2-1.3) mg/dL AST 185 H (17-59) U/L ALT 115 H (6-50) U/L Alkaline Phosphatase 102 (38-126) U/L Albumin 4.3 (3.5-5.1) g/dL
[2024-04-24 13:43] LABS: CRP 1.5 mg/dL (<1.0); Cholesterol 131 mg/dL (0-200); HDL Direct 69 mg/dL; Triglycerides 66 mg/dL (<150)
[2024-04-24 13:50] LABS: LDL Cholesterol Direct 37 mg/dL
[2024-04-24 13:54] LABS: Hemoglobin A1C 7.5 % (<5.7)
[2024-04-24 16:39] LABS: Hepatitis B Surface Antigen Negative (Negative)
[2024-04-24 16:45] LABS: HAV RESULT Negative (Negative); Hepatitis B Core IgM Result Negative (Negative)
[2024-04-24 16:57] LABS: Hepatitis C Virus Antibody Negative (Negative)
[2024-04-24 19:36] LABS: Glucose Point of Care 137 mg/dl (65-105)
[2024-04-24] MEDS: DOXAZOSIN MESYLATE 4 MG TABLET 8 MG PO (20:53)
[2024-04-24] MEDS: LACTATED RINGERS 1,000 ML 175 ML IV CONT (20:54)
[2024-04-25 00:04] LABS: Glucose Point of Care 137 mg/dl (65-105)
[2024-04-25] MEDS: LACTATED RINGERS 1,000 ML 150 ML IV CONT ×4 (02:30→23:31)
[2024-04-25 05:51] VITALS: BP 118/62; PULSE 77; RESP 18; TEMP 37.2; O2SAT 93
[2024-04-25 05:53] LABS: Glucose Point of Care 110 mg/dl (65-105)
[2024-04-25 09:12] LABS: Hematocrit 33.8 % (42.0-52.0); Hemoglobin 11.5 g/dL (14.0-18.0); Mean Corpuscular Volume 91.1 fl (80-100); Mean Platelet Volume 10.1 fl (7.4-10.4); Platelet Count Result 181 k/mm3 (150-375); Red Blood Count 3.71 M/mm3 (4.6-6.20); Red Cell Distribution Width 13.1 % (11.5-14.5); White Blood Count 8.5 K/mm3 (4.5-10.0)
[2024-04-25 09:36] LABS: Alanine Aminotransferase 150 U/L (6-50); Albumin Level 3.4 g/dL (3.5-5.1); Alkaline Phosphatase 96 U/L (38-126); Amylase 331 U/L (30-110); Anion Gap 4 mmol/L (4-12); Aspartate Amino Transferase 95 U/L (17-59); Bilirubin,Total 1.6 mg/dL (0.2-1.3); Blood Urea Nitrogen 15 mg/dL (9-20); Calcium 8.1 mg/dL (8.4-10.2); Carbon Dioxide 28 mmol/L (22-30); Chloride 105 mmol/L (98-107); Estimated CRCL calculation 65 ml/min; Estimated Glomerular Filt Rate > 60; Glucose 121 mg/dL (65-110); Lipase 1263 U/L (23-300); Potassium 3.4 mmol/L (3.4-5.0); Sodium 137 mmol/L (137-145)
--- NOTE | 2024-04-25 11:46 | WPDGIPROGNO ---
Progress Note: A&P Assessment and Plan (1) Abdominal pain, epigastric: Code(s): R10.13 - Epigastric pain Status: Acute (2) Pancreatitis, acute: Qualifiers: Pancreatitis type: alcohol induced Code(s): K85.90 - Acute pancreatitis without necrosis or infection, unspecified Status: Acute Plan ethanol pancreatitis gradually recovering advised patient to stay away from alcohol continue with IV fluids and hydration keep patient NPO except for medicines repeat lab workup in the morning regular GI service will resume patient care on Friday Subjective Date/time seen: 04/25/24 11:46 Interval history: feeling better passing some flatus appetite is improving still has some abdominal discomfort lab workup an MRCP results were reviewed Review of Systems Review of Systems: otherwise negative Exam HENMT: Other: pupil equal reactive Neck: Other: supple Resp: Other: air entry equal bilateral clear Cardio: Other: S1-S2 regular rate GI: Other: minimal tenderness on the abdomen bowel sounds diminished but present no rebound no guarding nondistended Neuro: Other: intact Objective Data Vital Signs Vital Signs: Vital Signs - 24 hr 04/24/24 14:00 04/24/24 20:41 04/24/24 20:45 Temperature 99.4 F 99.4 F Pulse Rate 94 93 Respiratory Rate 16 18 Blood Pressure 129/66 140/62 Pulse Oximetry 90 98 Oxygen Delivery Room Air 04/25/24 05:51 Temperature 99.0 F Pulse Rate 77 Respiratory Rate 18 Blood Pressure 118/62 Pulse Oximetry 93 Oxygen Delivery Intake/Output Intake/Output: Intake & Output 04/22/24 04/23/24 04/24/24 04/25/24 23:59 23:59 23:59 23:59 Intake Total 3120.0 2000 Output Total 300 400 Balance 2820.0 1600 Meds/Results Medications: Active Medications Generic Name Dose Route Start Last Admin Trade Name Freq PRN Reason Stop Dose Admin Dextrose 12.5 gm 04/24/24 12:46 Dextrose 50% 25 Gm/50 Ml Syringe IV PUSH PRN PRN Hypoglycemia Protocol Doxazosin Mesylate 8 mg 04/24/24 21:00 04/24/24 20:53 Doxazosin Mesylate 4 Mg Tablet PO 8 mg HS TOVA Administration Glucagon 1 mg 04/24/24 12:46 Glucagon For Inj 1 Mg Vial IM PRN PRN Hypoglycemia Protocol Glucose 15 gm 04/24/24 12:46 Glucose Oral Gel 15 Gm Of Glucse In 37.5 Gm Tube PO PRN PRN Hypoglycemia Protocol Hydromorphone HCl 0.5 mg 04/24/24 11:15 04/24/24 20:58 Hydromorphone Hcl Inj (*Crx) 1 Mg/Ml Syr IV PUSH 0.5 mg Q4H PRN Administration Pain Rated 7-10 Dextrose 1,000 mls @ 100 mls/hr 04/24/24 12:46 Dextrose 5% 1,000 Ml IVPB PRN PRN Hypoglycemia Protocol Lactated Ringer's 1,000 mls @ 150 mls/hr 04/25/24 01:11 04/25/24 09:10 Lr - Lactated Ringers Iv IV CONT 150 mls/hr .[id number] TOVA Administration Insulin Aspart 2 - 5 units 04/24/24 18:00 04/25/24 05:51 Insulin Aspart (*Bkc) 100 Units/Ml SUB-Q Not Given Q6HR TOVA Protocol Radiology Results: ITS Impressions Chest X-Ray 04/24/24 06:40 IMPRESSION: No active cardiopulmonary disease Abdomen/Pelvis CT 04/24/24 06:58 IMPRESSION: Acute interstitial pancreatitis Small sliding hiatal hernia Normal appendix Diverticulosis of left colon; no CT evidence of diverticulitis Diffuse hepatic steatosis Status post prostatectomy Scattered bilateral calcified pleural plaques consistent with prior asbestos exposure [place] Ultrasound 04/24/24 08:42 IMPRESSION: Hepatic steatosis No gallstones are demonstrated Borderline common bile duct diameter of 7.4 mm MRCP 04/25/24 06:57 IMPRESSION: 1. Acute interstitial pancreatitis. 2. No choledocholithiasis. 3. Diffuse hepatic steatosis. Labs Labs: Laboratory Results - last 24 hr 04/24/24 04/24/24 04/24/24 04:35 12:14 19:33 WBC RBC Hgb Hct MCV MCH MCHC RDW Plt Count MPV Sodium Potassium Chloride Carbon Dioxide Anion Gap BUN Creatinine Estim Creat Clear Calc Estimated GFR Glucose POC Capillary Glucose 137 H Hemoglobin A1c 7.5 H Calcium Total Bilirubin AST ALT Alkaline Phosphatase Troponin I < 0.012 C-Reactive Protein 1.5 H Total Protein Albumin Triglycerides 66 Cholesterol 131 LDL Cholesterol Direct 37 HDL Direct 69 Amylase Lipase Hepatitis A IgM Ab Negative Hep Bs Antigen Negative Hep B Core IgM Ab Negative Hepatitis C Ab Screen Negative 04/25/24 04/25/24 04/25/24 00:01 05:48 09:04 WBC 8.5 RBC 3.71 L Hgb 11.5 L Hct 33.8 L MCV 91.1 MCH 31.0 MCHC 34.0 RDW 13.1 Plt Count 181 MPV 10.1 Sodium 137 Potassium 3.4 Chloride 105 Carbon Dioxide 28 Anion Gap 4 BUN 15 Creatinine 0.90 Estim Creat Clear Calc 65 Estimated GFR > 60 Glucose 121 H POC Capillary Glucose 137 H 110 H Hemoglobin A1c Calcium 8.1 L Total Bilirubin 1.6 H AST 95 H ALT 150 H Alkaline Phosphatase 96 Troponin I C-Reactive Protein Total Protein 6.0 L Albumin 3.4 L Triglycerides Cholesterol LDL Cholesterol Direct HDL Direct Amylase 331 H Lipase 1263 H Hepatitis A IgM Ab Hep Bs Antigen Hep B Core IgM Ab Hepatitis C Ab Screen
[2024-04-25 12:07] LABS: Glucose Point of Care 122 mg/dl (65-105)
--- NOTE | 2024-04-25 14:27 | PM.IMPN ---
Progress Note: A&P Assessment and Plan (1) Pancreatitis, acute: Qualifiers: Pancreatitis type: alcohol induced Code(s): K85.90 - Acute pancreatitis without necrosis or infection, unspecified Status: Acute (2) Abdominal pain, epigastric: Code(s): R10.13 - Epigastric pain Status: Acute Plan Acute pancreatitis with elevated liver enzymes Patient presented with abdominal pain CT abdomen and pelvis showed acute interstitial pancreatitis Lipase 19,835, AST 185, bilirubin 1.8, ALT 115., AST 95, ALT 150 and Bili 1.6 today Continue NPO except meds and ice chips MRCP showed acute pancreatitis, no stones or biliary blockages IV fluid, GI eval noted One. Hypertension Continue to Zosyn, who are the home medications and titrate with clinical course. Hyperlipidemia Hold home medications and titrate with clinical course. DM2 SSI with accucheks DVT prophylaxis Sq Lovenox Full code Surrogate decision maker, Georgia Rodriguez Subjective Date/time seen: 04/25/24 14:27 Interval history: feeling better passing some flatus appetite is improving still has some abdominal discomfort lab workup an MRCP results were reviewed Review of Systems Review of Systems: All other systems were reviewed and negative except as noted in the history above. Exam Narrative: General: alert and comfortable Eyes: EOMI, PERRLA ENNT External ears normal, Neck is supple, no masses, Respiratory systems: Clear to auscultation Cardiovascular S1, S2, normal rhythm, no murmur, rub, or gallop; no thrill or palpable murmurs on palpation. Gastrointestinal: soft, epigastric tenderness, and non-distended abdomen with no masses; BS present Skin: no rash, lesions, ulcerations, subcutaneous nodules or induration Musculoskeletal: no abnormality and no tenderness, normal ROM Neurologic: Alert and oriented x3, non focal Mental Status Exam: normal affect Objective Data Vital Signs Vital Signs: Vital Signs - 24 hr 04/24/24 20:41 04/24/24 20:45 04/25/24 05:51 Temperature 99.4 F 99.0 F Pulse Rate 93 77 Respiratory Rate 18 18 Blood Pressure 140/62 118/62 Pulse Oximetry 98 93 Oxygen Delivery Room Air Intake/Output Intake/Output: Intake & Output 04/22/24 04/23/24 04/24/24 04/25/24 23:59 23:59 23:59 23:59 Intake Total 3120.0 2000 Output Total 300 400 Balance 2820.0 1600 Meds/Results Medications: Active Medications Generic Name Dose Route Start Last Admin Trade Name Freq PRN Reason Stop Dose Admin Dextrose 12.5 gm 04/24/24 12:46 Dextrose 50% 25 Gm/50 Ml Syringe IV PUSH PRN PRN Hypoglycemia Protocol Doxazosin Mesylate 8 mg 04/24/24 21:00 04/24/24 20:53 Doxazosin Mesylate 4 Mg Tablet PO 8 mg HS TOVA Administration Glucagon 1 mg 04/24/24 12:46 Glucagon For Inj 1 Mg Vial IM PRN PRN Hypoglycemia Protocol Glucose 15 gm 04/24/24 12:46 Glucose Oral Gel 15 Gm Of Glucse In 37.5 Gm Tube PO PRN PRN Hypoglycemia Protocol Hydromorphone HCl 0.5 mg 04/24/24 11:15 04/24/24 20:58 Hydromorphone Hcl Inj (*Crx) 1 Mg/Ml Syr IV PUSH 0.5 mg Q4H PRN Administration Pain Rated 7-10 Dextrose 1,000 mls @ 100 mls/hr 04/24/24 12:46 Dextrose 5% 1,000 Ml IVPB PRN PRN Hypoglycemia Protocol Lactated Ringer's 1,000 mls @ 150 mls/hr 04/25/24 01:11 04/25/24 09:10 Lr - Lactated Ringers Iv IV CONT 150 mls/hr .Q6H40M TOVA Administration Insulin Aspart 2 - 5 units 04/24/24 18:00 04/25/24 13:20 Insulin Aspart (*Bkc) 100 Units/Ml SUB-Q Not Given Q6HR [facility] Protocol Radiology Results: ITS Impressions Chest X-Ray 04/24/24 06:40 IMPRESSION: No active cardiopulmonary disease Abdomen/Pelvis CT 04/24/24 06:58 IMPRESSION: Acute interstitial pancreatitis Small sliding hiatal hernia Normal appendix Diverticulosis of left colon; no CT evidence of diverticulitis Diffuse hepatic steatosis Status post prostatectomy Scattered bilateral calcified pleural plaques consistent with prior asbestos exposure Upper Quadrant Ultrasound 04/24/24 08:42 IMPRESSION: Hepatic steatosis No gallstones are demonstrated Borderline common bile duct diameter of 7.4 mm MRCP 04/25/24 06:57 IMPRESSION: 1. Acute interstitial pancreatitis. 2. No choledocholithiasis. 3. Diffuse hepatic steatosis. Labs Labs: Laboratory Results - last 24 hr 04/24/24 04/24/24 04/25/24 12:14 19:33 00:01 WBC RBC Hgb Hct MCV MCH MCHC RDW Plt Count MPV Sodium Potassium Chloride Carbon Dioxide Anion Gap BUN Creatinine Estim Creat Clear Calc Estimated GFR Glucose POC Capillary Glucose 137 H 137 H Calcium Total Bilirubin AST ALT Alkaline Phosphatase Total Protein Albumin Amylase Lipase Hepatitis A IgM Ab Negative Hep Bs Antigen Negative Hep B Core IgM Ab Negative Hepatitis C Ab Screen Negative 04/25/24 04/25/24 04/25/24 05:48 09:04 12:03 WBC 8.5 RBC 3.71 L Hgb 11.5 L Hct 33.8 L MCV 91.1 MCH 31.0 MCHC 34.0 RDW 13.1 Plt Count 181 MPV 10.1 Sodium 137 Potassium 3.4 Chloride 105 Carbon Dioxide 28 Anion Gap 4 BUN 15 Creatinine 0.90 Estim Creat Clear Calc 65 Estimated GFR > 60 Glucose 121 H POC Capillary Glucose 110 H 122 H Calcium 8.1 L Total Bilirubin 1.6 H AST 95 H ALT 150 H Alkaline Phosphatase 96 Total Protein 6.0 L Albumin 3.4 L Amylase 331 H Lipase 1263 H Hepatitis A IgM Ab Hep Bs Antigen Hep B Core IgM Ab Hepatitis C Ab Screen
[2024-04-25 15:12] VITALS: BP 109/53; PULSE 70; RESP 17; TEMP 36.7; O2SAT 90
[2024-04-25] MEDS: HYDROmorphone HCL INJ (*CRX) 1 MG/ML SYR 0.5 MG IV PUSH ×2 (16:55→23:31)
[2024-04-25 18:18] LABS: Glucose Point of Care 114 mg/dl (65-105)
[2024-04-25] MEDS: DOXAZOSIN MESYLATE 4 MG TABLET 8 MG PO (20:05)
[2024-04-25 22:47] VITALS: BP 129/58; PULSE 66; RESP 16; TEMP 36.4; O2SAT 93
[2024-04-25 23:31] LABS: Glucose Point of Care 113 mg/dl (65-105)
[2024-04-26 06:00] VITALS: BP 131/66; PULSE 59; RESP 16; TEMP 36.6; O2SAT 96
[2024-04-26 06:13] LABS: Basophils Percent Auto 0.4 % (0.2-1.2); Eosinophils Absolute Auto 0.1 K/mm3 (0-0.3); Eosinophils Percent Auto 1.2 % (0-4.4); Hematocrit 34.6 % (42.0-52.0); Hemoglobin 11.5 g/dL (14.0-18.0); Immature Granulocyte Absolute 0.04 K/mm3 (0.00-0.031); Immature Granulocyte Percent A 0.5 % (0-0.5); Lymphocytes Percent Auto 10.3 % (18.3-44.2); Mean Corpuscular HGB Conc 33.2 g/dl (32-36); Mean Corpuscular Hemoglobin 30.5 pg (26-34); Mean Corpuscular Volume 91.8 fl (80-100); Mean Platelet Volume 11.1 fl (7.4-10.4); Monocytes Absolute Auto 0.7 K/mm3 (0.1-0.6); Neutrophils Absolute Auto 6.1 K/mm3 (1.3-6.7); Neutrophils Percent Auto 78.6 % (45.5-73.1); Platelet Count Result 182 k/mm3 (150-375); Red Blood Count 3.77 M/mm3 (4.6-6.20); Red Cell Distribution Width 12.8 % (11.5-14.5); White Blood Count 7.8 K/mm3 (4.5-10.0)
[2024-04-26] MEDS: LACTATED RINGERS 1,000 ML 150 ML IV CONT (06:17)
[2024-04-26 06:19] LABS: Alanine Aminotransferase 107 U/L (6-50); Albumin Level 3.2 g/dL (3.5-5.1); Alkaline Phosphatase 101 U/L (38-126); Anion Gap 6 mmol/L (4-12); Aspartate Amino Transferase 61 U/L (17-59); Bilirubin,Total 1.4 mg/dL (0.2-1.3); Blood Urea Nitrogen 17 mg/dL (9-20); Calcium 8.3 mg/dL (8.4-10.2); Carbon Dioxide 26 mmol/L (22-30); Chloride 105 mmol/L (98-107); Cholesterol 117 mg/dL (0-200); Estimated CRCL calculation 73 ml/min; Estimated Glomerular Filt Rate > 60; Glucose 106 mg/dL (65-110); HDL Direct 48 mg/dL; Magnesium 1.8 mg/dL (1.6-2.3); Potassium 3.4 mmol/L (3.4-5.0); Sodium 137 mmol/L (137-145); Triglycerides 95 mg/dL (<150)
[2024-04-26 06:22] LABS: Glucose Point of Care 115 mg/dl (65-105)
[2024-04-26 06:30] LABS: LDL Cholesterol Direct 32 mg/dL
[2024-04-26 09:44] VITALS: O2SAT 94
[2024-04-26 11:44] LABS: Glucose Point of Care 140 mg/dl (65-105)
--- NOTE | 2024-04-26 12:52 | P.DS_ITS ---
DS: Admitting Diagnosis Discharge Date 04/26/24 Admitting Diagnosis abd pain DS: Discharge Diagnosis Discharge Diagnosis (1) Pancreatitis, acute: Qualifiers: Pancreatitis type: alcohol induced Code(s): K85.90 - Acute pancreatitis without necrosis or infection, unspecified Status: Acute DS: Summary Hospital Course Hospital Course: 79-year-old male past medical history of hypertension, hyperlipidemia presented to the ER on account of abdominal pain. Patient reported he was in his usual state of health until about yesterday when he started having abdominal pain and upper abdominal region, described as a dull 7/10 in intensity nonradiating. Denies any vomiting no diarrhea no shortness of breath no leg swelling no focal weakness. Noted at pain kept him awake awake most of the night, prompting presentation to the ER for proper evaluation and care. ER evaluation vital signs were stable within normal limits. Labs lipase 19,008 on 22/10, AST 185, ALT 1.5, bilirubin 8. Blood sugar 146. Troponin negative EKG normal sinus rhythm no acute ST-T changes. CT abdomen and pelvis showed acute interstitial pancreatitis. Chest x-ray unremarkable. Ultrasound showed no gallstones demonstrated over borderline common bile duct diameter Patient was admitted and GI was consulted due to borderline CBD dilation. MRCP was done and was normal except for acute pancreatitis. Patient was NPO and put on PRN pain control. Patient noted that pain has markedly improved and tolerating diet. Thus patient discharged to follow up with PCP in 3-5 days and Gi as instructed. Time Spent with Patient Time attestation: Total time spent providing and/or coordinating discharge services: DS: Data Data Completed and Pending Labs on day of discharge: Labs from last 24 hours 04/26/24 04/26/24 04/26/24 11:42 06:14 05:41 WBC 7.8 RBC 3.77 L Hgb 11.5 L Hct 34.6 L MCV 91.8 MCH 30.5 MCHC 33.2 RDW 12.8 Plt Count 182 MPV 11.1 H Immature Gran % (Auto) 0.5 Neut % (Auto) 78.6 H Lymph % (Auto) 10.3 L [place] % (Auto) 9.0 H Eos % (Auto) 1.2 Baso % (Auto) 0.4 Lymph # (Auto) 0.80 L [place] # (Auto) 0.7 H Eos # (Auto) 0.1 Baso # (Auto) 0.0 Abs Immat Gran (auto) 0.04 H Absolute Neuts (auto) 6.1 Absolute Nucleated RBC 0.000 Nucleated RBC % 0.0 Sodium 137 Potassium 3.4 Chloride 105 Carbon Dioxide 26 Anion Gap 6 BUN 17 Creatinine 0.80 Estim Creat Clear Calc 73 Estimated GFR > 60 Glucose 106 POC Capillary Glucose 140 H 115 H Calcium 8.3 L Magnesium 1.8 Total Bilirubin 1.4 H AST 61 H ALT 107 H Alkaline Phosphatase 101 Total Protein 6.0 L Albumin 3.2 L Triglycerides 95 Cholesterol 117 LDL Cholesterol Direct 32 HDL Direct 48 04/25/24 04/25/24 23:28 18:14 WBC RBC Hgb Hct MCV MCH MCHC RDW Plt Count MPV Immature Gran % (Auto) Neut % (Auto) Lymph % (Auto) [place] % (Auto) Eos % (Auto) Baso % (Auto) Lymph # (Auto) [place] # (Auto) Eos # (Auto) Baso # (Auto) Abs Immat Gran (auto) Absolute Neuts (auto) Absolute Nucleated RBC Nucleated RBC % Sodium Potassium Chloride Carbon Dioxide Anion Gap BUN Creatinine Estim Creat Clear Calc Estimated GFR Glucose POC Capillary Glucose 113 H 114 H Calcium Magnesium Total Bilirubin AST ALT Alkaline Phosphatase Total Protein Albumin Triglycerides Cholesterol LDL Cholesterol Direct HDL Direct Discharge Plan Discharge Attending physician on discharge: Osorio Mccallum Consulting providers: Dev Reyes Discharging Clinician: Osorio Mccallum Anticipated Discharge Date/Time: 04/26/24 12:41 Patient Disposition: Home, Self-Care Activity: as tolerated Diet: as tolerated Patient Instructions: Antibiotic Form Stand Alone Forms: General Discharge Information Follow-up/Referrals: Dev Reyes MD [Physician] - (F/u with GI as instructed ) Tavo,Jameel Cline MD [Primary Care Provider] - (F/u with PCP in 3-5 days ) Discharge Medications: New hydrocodone-acetaminophen 5-325 mg Tablet 1 tablet PO Q6H PRN (Reason: Pain Rated 4-6) 5 Days Qty: 10 0RF Continued atorvastatin 20 mg tablet 20 mg PO HS amlodipine 5 mg tablet 5 mg PO DAILY doxazosin 8 mg tablet 8 mg PO HS lisinopril-hydrochlorothiazide 20-25 mg tablet 1 tablet PO DAILY cetirizine 10 mg Tablet 10 mg PO HS acetaminophen [Tylenol Extra Strength] 500 mg Tablet 1,000 mg PO Q8H PRN (Reason: mild pain or fever) ibuprofen 200 mg Tablet 400 mg PO Q6H PRN (Reason: muscle/joint pain) metformin 500 mg tablet extended release 24 hr 500 mg PO BID Date of admission: 04/24/24 11:15 Primary Care Provider: Tavo,Jameel Cline Admitting Provider: Christos Robledo Attending physician on admission: Christos Robledo Condition: Stable
[2024-04-26 14:00] VITALS: BP 136/68; PULSE 63; RESP 16; TEMP 36.6; O2SAT 95
== END 2024-04-26 18:16 | disposition home or self-care (01) | DRG 440 ==
LOC: ANHED 10:41 → ANH3MED 11:50
PROVIDERS: Internal Medicine Gastroenterology; Admitting Provider Internal Medicine; Emergency Provider Emergency Medicine; PCP Family Medicine; Visit Provider Internal Medicine
DX: K85.20 Alcohol induced acute pancreatitis without necrosis or infection (principal); E11.9 Type 2 diabetes mellitus without complications; I10 Essential (primary) hypertension; E78.5 Hyperlipidemia, unspecified; Z87.891 Personal history of nicotine dependence
CPT/HCPCS: 36415; 71045; 74177; 74181; 76376; 76705; 80053; 80061; 80074; 82150; 82948; 83036; 83690; 83735; 84484; 85025; 85027; 85610; 85730; 86140; 93005; 99285; A9270; J1171; J2405; J7030; J7120; Q9967